=== PATIENT | female | born 1970 | race Caucasian/White ===

== ENCOUNTER → 2016-09-02 19:14 | Outpatient (CLI) | payer OTHER | END | disposition home or self-care (01) | LOC: D.MAMMO 16:15 | DX: Z12.31 Encounter for screening mammogram for malignant neoplasm of breast (principal) ==

== ENCOUNTER → 2016-09-10 08:30 | Outpatient (CLI) | payer OTHER | END | disposition home or self-care (01) | LOC: D.MRI 08:30 | DX: N83.201 Unspecified ovarian cyst, right side (principal) ==

== ENCOUNTER 2016-09-19 10:07 | Outpatient (CLI) | payer OTHER ==
--- NOTE | ~2016-09-19 | HEMODYNAMI ---
PATIENT:KANWAL QUINTANA MEDICAL RECORD: [id number] : 66 LOCATION:[facility] ADMISSION DATE: 09/19/16 Generatedon:09/19/201615:00 Patient name: KANWAL QUINTANA Patient #: [id number] SSN: : 1970 Date of study: 09/19/2016 Page: Of Hemodynamic Procedure Report Patient Data Patient Demographics Procedure consent was obtained First Name: KANWAL Gender: Female Last Name: MARIANO : 1970 Middle Initial: PING Age: 45 year(s) Patient #: [id number] Race: Additional ID: [id number] Contact details Address: [address] [place] [address] State: [place] City: [facility] Zip code: [address] Past Medical History Allergies: No known allergies Admission Admission Data Admission Date: 09/19/2016 Admission Time: 10:07 Lab Results Lab Result Date: 09/19/2016 Lab Result Time: 0:00 Biochemistry Name Units Result Min Max CK-MB ng/ml 0.8 --(*---)-- 0 3.6 Creatinine mg/dl 0.7 --(*---)-- 0.6 1.3 Creatinine l 63 --(*---)-- 21 215 Kinase Troponin l ng/ml 0.017 --(-*--)-- 0 0.06 CBC Name Units Result Min Max Hemoglobin g/dl 14.7 --(-*--)-- 13.5 17.5 Procedure Procedure Types Cath Procedure Diagnostic Procedure LHC LHC w/Coronaries Miscellaneous Procedures Moderate Sedation up to 15 minutes Procedure Description Procedure Date Procedure Date: 09/19/2016 Procedure Start Time: 14:50 Procedure End Time: 15:00 Procedure Staff Name Function Joey Hernandes MD Performing Physician Margie Monroy RN Nurse Sheila Shay RT Monitor Darya Gonzalez RT Scrub Procedure Data Cath Procedure Fluoroscopy Diagnostic fluoroscopy Total fluoroscopy Time: 1.5 time: 1.5 min min Diagnostic fluoroscopy Total fluoroscopy dose: 587 dose: 587 mGy mGy Contrast Material Contrast Material Type Amount (ml) Isovue 300 54 Entry Location Entry Primary Successful Side Size Upsize Upsize Entry Closure Cannon ccessful Closure Location (Fr) 1 (Fr) 2 (Fr) Remarks Device Remarks Radial Right 6 Fr Mechanical artery Short Compression Estimated blood loss: 5 ml Diagnostic catheters Device Type Used For End Catheter Placement Terumo 5Fr [place] 110cm LV Angiography catheter Terumo 5Fr [place] 110cm Left Coronary catheter Angiography Terumo 5Fr [place] 110cm Right Coronary catheter Angiography Procedure Complications No complications Procedure Medications Medication Administration Route Dosage Oxygen NC 2 l/min Lidocaine 2% added to field 20 Heparin Flush Bag added to field 2 bags (1000units/500ml NS) 0.9% NaCl I.V. 100 ml/hr Radial Cocktail I.A. 1 syringe (Verapomil 2mg/Nitro 400mcg/Heparin 1500units) Versed I.V. 2 mg Fentanyl I.V. 100 mcg Versed I.V. 1 mg Fentanyl I.V. 100 mcg Hemodynamics Rest HGB: 14.7 (g/dl) Heart Rate: 68 (bpm) Snapshots Pre Cath Intra NCS Post Cath Vital Signs Time Heart Resp SPO2 etCO2 [id number] NIBP Rhythm Pain Sedation Rate (ipm) (%) (mmHg) (mmHg) (mmHg) Status Level (bpm) 14:30:09 67 16 95 0 0 96/57(75) NSR 0 (11) 10(A) , No pain 14:34:19 69 17 96 0 0 97/51(81) NSR 0 (11) 10(A) , No pain 14:38:24 67 18 95 0 0 98/64(76) NSR 0 (11) 10(A) , No pain 14:42:32 62 19 97 0 0 97/48(80) NSR 0 (11) 10(A) , No pain 14:46:42 63 20 97 0 0 91/53(69) NSR 0 (11) 10(A) , No pain 14:50:50 62 19 100 0 0 99/53(74) NSR 0 (11) 10(A) , No pain 14:55:04 59 18 96 0 0 96/43(69) NSR 0 (11) 9(A) , No pain 14:59:12 62 16 95 0 0 96/56(85) NSR 0 (11) 10(A) , No pain Medications Time Medication Route Dose Verified Delivered Reason Notes Effectiveness by by 14:42:45 Oxygen NC 2 l/min Joey Hanson used for Greta Monroy RN procedure 14:42:52 Lidocaine 2% added 20ml Joey Cook for local to vial Greta Hernandes MD anesthetic field 14:43:02 Heparin Flush added 2 bags Joey Cook used for Bag to Greta Hernandes MD procedure (1000units/500ml field NS) 14:43:11 0.9% NaCl I.V. 100 Joey Hanson Per ml/hr Greta Monroy RN physician 14:49:30 Fentanyl I.V. 100 mcg Joey Hanson for sedation Greta Monroy RN 14:49:44 Versed I.V. 2 mg Joey Hanson for sedation Greta Monroy RN 14:52:33 Radial Cocktail I.A. 1 Joey Cook for (Verapomil syringe Greta Hernandes MD vasodilation 2mg/Nitro 400mcg/Heparin 1500units) 14:54:09 Versed I.V. 1 mg Joey Hanson for sedation Greta Monroy RN 14:54:13 Fentanyl I.V. 100 mcg Joey Hanson for sedation Greta Monroy RN Procedure Log Time Note 14:01:01 Darya Gonzalez RT(R) sent for patient. Start room use. 14:07:07 Time tracking: Regular hours 14:07:15 Plan of Care:Hemodynamics will remain stable., Cardiac rhythm will remain stable., Comfort level will be maintained., Respiratory function will remain adequate., Patient/ family verbilizes understanding of procedure., Procedure tolerated without complication., Recovers from procedure without complications.. 14:16:37 Patient received from ED to CCL 1 Alert and oriented. Tansferred to table in Supine position. 14:16:38 Warm blankets applied, and sari hugger turned on for patient comfort. 14:16:38 Correct patient and procedure confirmed by team. 14:16:40 Signed procedure consent form obtained from patient. 14:16:41 ECG and BP/O2 sat monitors applied to patient. 14:16:42 Full Disclosure recording started 14:29:01 Vital chart was started 14:29:05 Rhythm: sinus rhythm 14:29:54 H&P Date Dictated: 09/19/2016 ER History on chart.. 14:30:25 Pre-procedure instructions explained to patient. 14:30:25 Pre-op teaching completed and patient verbalized understanding. 14:30:27 Family in waiting room. 14:30:34 Patient NPO since Midnight. 14:30:41 Is the patient allergic to Iodine/contrast media? No. 14:30:54 Patient allergic to No known allergies 14:31:02 Is patient on blood thinner?Yes 14:31:04 ACC The patient was administered the following blood thiners within the last 24 hours: ACCPlavix 14:31:06 Patient diabetic? No. 14:31:12 Previous problem with sedation/anesthesia? No ? 14:31:12 Snore? Yes 14:31:13 Sleep apnea? No 14:31:14 Deviated septum? No 14:31:15 Opens mouth fully? Yes 14:31:16 Sticks out tongue? Yes 14:31:18 Airway obstruction? No ? 14:31:19 Dentures? No ? 14:31:23 Pre procedure: right dorsailis pedis pulse 2+ Normal; easily identifiable; not easily obliterated 14:31:24 Modified Rafa's test Ulnar < 7 seconds 14:31:26 Patient pain scale 0/10 ?. 14:31:38 IV patent on arrival in right hand with 0.9% NaCl at O. 14:33:00 Lab Result : Creatinine 0.7 mg/dl 14:33:00 Lab Result : CK-MB 0.8 ng/ml 14:33:00 Lab Result : Troponin l 0.017 ng/ml 14:33:00 Lab Result : Creatinine Kinase 63 l 14:33:00 Lab Result : Hemoglobin 14.7 g/dl 14:33:04 Lab results completed and on chart. 14:33:07 Right Radial & Right Groin area was prepped with chlora-prep and draped in sterile fashion 14:33:08 Alarms reviewed by R. N. 14:33:08 Sharps counted by scrub and verified by R.N. 14:33:23 Use device set Radial Dx 14:33:24 Acist Syringe opened to sterile field. 14:33:24 Medline Cath Pack opened to sterile field. 14:33:25 Bag Decanter opened to sterile field. 14:33:25 Terumo 6Fr Slender Glidesheath opened to sterile field. 14:33:26 St Bobo 260cm J .035 wire opened to sterile field. 14:33:26 Acist Hand Control opened to sterile field. 14:33:27 Acist Manifold opened to sterile field. 14:33:27 Tegaderm 4 x 4 opened to sterile field. 14:34:34 Baseline sample Acquired. 14:42:45 Oxygen 2 l/min NC was administered by Margie Monroy RN; used for procedure; 14:42:52 Lidocaine 2% 20ml vial added to field was administered by Joey Hernandes MD; for local anesthetic; 14:43:02 Heparin Flush Bag (1000units/500ml NS) 2 bags added to field was administered by Joey Hernandes MD; used for procedure; 14:43:11 0.9% NaCl 100 ml/hr I.V. was administered by Margie Monroy RN; Per physician; 14:48:18 IV Extension Set opened to sterile field. 14:48:32 Final Timeout: patient, procedure, and site verified with staff and physician. All members of the team are in agreement. 14:48:36 Right Radial & Right Groin site verified by team. 14:48:39 Physical assessment completed. ASA score P 2 - A patient with mild systemic disease as per Joey Hernandes MD. 14:48:42 Sedation plan: IV Moderate Sedation Versed, Fentanyl 14:49:30 Fentanyl 100 mcg I.V. was administered by Margie Monroy RN; for sedation; 14:49:44 Versed 2 mg I.V. was administered by Margie Monroy RN; for sedation; 14:50:18 Procedure started. 14:50:39 Local anesthetic to right radial artery with Lidocaine 2% by Joey Hernandes MD.INITIAL ACCESS ONLY 14:51:17 A 6 Fr Short sheath was inserted into the Right Radial artery 14:52:33 Radial Cocktail (Verapomil 2mg/Nitro 400mcg/Heparin 1500units) 1 syringe I.A. was administered by Joey Hernandes MD; for vasodilation; 14:52:34 A Terumo 5Fr [place] 110cm catheter was advanced over the wire and used for LV Angiography. 14:53:20 EF : 50 % 14:53:22 LV gram done using MÉNDEZ 14:53:24 LV hemodynamics recorded. 14:53:26 Injector settings: Ml/sec: 5, Volume: 15, 14:53:39 A Terumo 5Fr [place] 110cm catheter was advanced over the wire and used for Left Coronary Angiography. 14:54:09 Versed 1 mg I.V. was administered by Margie Monroy RN; for sedation; 14:54:13 Fentanyl 100 mcg I.V. was administered by Margie Monroy RN; for sedation; 14:55:27 A Terumo 5Fr [place] 110cm catheter was advanced over the wire and used for Right Coronary Angiography. 14:55:28 Catheter removed. 14:55:34 Terumo TR Band Standard opened to sterile field. 14:55:47 Sheath removed intact; hemostasis achieved with Mechanical Compression to the Right Radial artery. 14:55:49 Procedure ended.(Physican Out) 14:56:05 Fluoroscopy time 01.50 minutes. 14:56:10 Fluoroscopy dose: 587 mGy 14:56:10 Flurop Dose total: 587 14:56:14 Contrast amount:Isovue 300 54ml. 14:56:15 Sharps counted by scrub and verified by R.N. 14:56:19 TR band inflated with 12cc of air. 14:56:20 Insertion/operative site no bleeding no hematoma. 14:56:30 Post right radial artery:stable, clean and dry 14:56:32 Post Procedure Pulses reassessed and unchanged 14:56:39 Post-procedure physical assessment completed. ASA score P 2 - A patient with mild systemic disease as per Joey Hernandes MD. 14:56:43 Post procedure rhythm: unchanged. 14:56:58 Estimated blood loss: 5 ml 14:56:59 Post procedure instruction explained to patient.Patient verbalizes understanding. 14:57:00 Patient needs reinforcement of post procedure teaching. 14:57:21 Procedure type changed to Cath procedure, Diagnostic procedure, LHC, LHC w/Coronaries, Miscellaneous Procedures, Moderate Sedation up to 15 minutes 14:57:27 Procedure Complication : No complications 14:57:29 See physician's report for complete and final results. 14:57:58 Procedure and supply charges have been captured, reviewed, submitted and are correct. 14:59:55 Vital chart was stopped 15:00:08 Report given to Pre/Post Procedure Room. 15:00:15 Patient transfered to Pre/Post Procedure Room with Stretcher. 15:00:24 Procedure ended. 15:00:24 Full Disclosure recording stopped 15:00:29 End room use (Document Last) Device Usage Item Name Manufacture Quantity Catalog Hospital Part Current Minimal Lot# / Number Charge Number Stock Stock Serial# Code Acist Acist 1 28255 [id number] 085018 [id number] 20 Syringe Medical Systems Inc Medline Cardinal 1 [id number] 366119 49426 186908 5 Cath Pack Health Bag Microtek 1 2001S [id number] 22427 892842 5 Decanter Medical Inc. Terumo 6Fr Terumo 1 [id number] 218134 469899 768414 [address] St Bobo 1 756166 834621 565562 118866 30 260cm J .035 wire Acist Hand Acist 1 39860 960987 913663 360124 5 Control Medical Systems Inc Acist Acist 1 21361 244198 347160 545097 5 Manifold Medical Systems Inc Tegaderm 4 3M 1 1626W 308395 132933 033956 5 x 4 IV Hospira 1 46859-13 421460 66980 631735 5 Extension Set Terumo 5Fr Terumo 1 40-0588 126450 675955 381853 5 [place] 110cm catheter Terumo TR Terumo 1 [id number] 568561 679789 959107 40 Band Standard Signature Audit [place] Stage Time Signature Unsigned Intra-Procedure 09/19/2016 Sheila 3:00:39 PM Counts RT(R) Signatures Monitor : Sheila Signature : Counts RT Date : Time : [facility] [address] [place] [address]
[2016-09-19 10:57] LABS: BASOPHILS 0.1 % (0-2); EOSINOPHILS 0.7 % (0-7); HEMATOCRIT 43.1 % (36.0-48.0); HEMOGLOBIN 14.7 g/dL (12-16); IMMATURE GRANULOCYTES 0.2 % (0-5); LYMPHOCYTES 10.2 % (15-50); MCH 30.1 pg (26.0-34.0); MCHC 34.1 g/dL (31.0-37.0); MCV 88.1 fL (80.0-100.0); MEAN PLATELET VOLUME 11.5 fL (7.4-10.4); MONOCYTES 6.6 % (2-11); NEUTROPHILS 82.2 % (40-80); PLATELET COUNT 224 10x3/uL (130-400); RBC 4.89 10x6/uL (4.00-5.40); RDW 13.2 % (11.5-14.5); WBC 18.4 10x3/uL (4.8-10.8)
[2016-09-19 11:02] LABS: APPEARANCE HAZY (CLEAR); BILIRUBIN NEGATIVE (NEGATIVE); COLOR YELLOW (YELLOW); GLUCOSE NEGATIVE (NEGATIVE); KETONE NEGATIVE (NEGATIVE); LEUKOCYTE ESTERASE NEGATIVE (NEGATIVE); NITRITE NEGATIVE (NEGATIVE); PROTEIN NEGATIVE (NEGATIVE); UROBILINOGEN NORMAL (NORMAL)
[2016-09-19 11:03] LABS: HCG URINE NEGATIVE (NEGATIVE)
[2016-09-19 11:13] LABS: ALBUMIN 3.7 g/dL (3.4-5.0); ALKALINE PHOSPHATASE 78 U/L (46-116); ALT (SGPT) 34 U/L (10-68); CALC OSMOLALITY 276 mosm/kg (275-300); CALCIUM 8.8 mg/dL (8.5-10.1); CARBON DIOXIDE 27.3 mmol/L (21.0-32.0); CHLORIDE - SERUM 103 mmol/L (98-107); CREATININE - SERUM 0.7 mg/dL (0.6-1.3); GLUCOSE 101 mg/dL (74-106); POTASSIUM - SERUM 3.8 mmol/L (3.5-5.1); PROTEIN - SERUM 7.2 g/dL (6.4-8.2); SODIUM 139 mmol/L (136-145); UREA NITROGEN 11 mg/dL (7-18); eGFR NON AFRICAN AMERICAN > 90 mL/min (90-120)
[2016-09-19 12:19] LABS: TROPONIN-I 0.017 ng/mL (0.000-0.060)
[2016-09-19 13:00] LABS: CKMB 0.8 U/L (0.0-3.6); CREATINE KINASE 63 UL (21-215)
--- NOTE | 2016-09-19 15:25 | NUR ---
RESTING QUIETLY IN BED. 2L NC, NO RESP DISTRESS NOTED. VSS. NO C/O CHEST PAIN OR NAUSEA. RIGHT WRIST TR BAND IN PLACE, DRSG CDI, NO BLEEDING OR HEMATOMA NOTED. WILL CONTINUE TO MONITOR.
--- NOTE | 2016-09-19 15:55 | NUR ---
SANDWICH TRAY GIVEN. NO C/O N/V. RIGHT WRIST TR BAND IN PLACE, NO BLEEDING OR HEMATOMA NOTED.
--- NOTE | 2016-09-19 16:22 | NUR ---
2CC OF AIR REMOVED FROM TR BAND. NO BLEEDING NOTED.
--- NOTE | 2016-09-19 16:35 | NUR ---
3CC OF AIR REMOVED FROM TR BAND. NO BLEEDING NOTED.
--- NOTE | 2016-09-19 16:48 | NUR ---
3CC OF AIR REMOVED FROM TR BAND. NO BLEEDING NOTED. RIGHT HAND PIV D/C'D WITH CATHETER INTACT. BAND AID TO SITE. UP TO BEDSIDE TO GET DRESSED.
--- NOTE | 2016-09-19 16:55 | NUR ---
REMAINING AIR REMOVED FROM TR BAND. DRESSING TO SITE. DISCHARGE INSTRUCTIONS GIVEN, VERBALIZED UNDERSTANDING.
--- NOTE | 2016-09-19 17:08 | NUR ---
TAKEN OUT VIA WHEELCHAIR BY CATH SHOP LABORER. LEFT FACILITY WITH FAMILY MEMBER AND ALL PERSONAL BELONGINGS.
--- NOTE | 2016-09-24 08:06 | OP ---
PATIENT NAME: KANWAL QUINTANA MEDICAL RECORD: [id number] :66 LOCATION:[facility] ADMISSION DATE: SURGEON: JAY ETIENNE MD DATE OF OPERATION: 09/19/2016 PROCEDURES: 1. Left heart catheterization. 2. Selective coronary angiography. 3. Left ventriculogram. INDICATION: Chest pain compatible with angina, coronary artery disease and previous PTCA stent. PROCEDURE IN DETAIL: After informed consent was obtained and after detailed explanation of risks, benefits, as well as alternative therapies, the patient elected to proceed with angiogram and heart catheterization. The right radial area was prepped and draped in normal sterile fashion. Right radial artery was cannulated via modified Seldinger technique with placement of a 5-Yi sheath. All catheters exchanged through this sheath. FINDINGS: Left ventriculogram was performed in the standard 30-degree MÉNDEZ view reveals good cardiac wall motion throughout all segments. Overall ejection fraction estimated at 55% to 60%. SELECTIVE CORONARY ANGIOGRAPHY: 1. Left main showed no significant angiographic disease. 2. Left anterior descending has moderate irregularities, but no flow-limiting stenosis. 3. The left circumflex has moderate irregularities, but no flow-limiting stenosis. 4. The right coronary has previously placed stents, these are widely patent with no significant restenosis. No disease elsewise throughout the RCA or its branches. OVERALL IMPRESSION: Wide patency of the previously placed stents. No disease elsewise. Chest pain is noncardiac in etiology. TRANSINT:[id number] Voice Confirmation ID: [id number] DOCUMENT ID: [id number] JAY ETIENNE MD at 0806 CC: [id number] DICTATION DATE: 09/19/16 1459 PATIENT TRANSPORTER: 09/19/16 2105 DEP CLI 09/19/16 [place] [address]
== END 2016-09-19 17:08 | disposition home or self-care (01) ==
LOC: D.ER 10:07 → D.CATH 10:07 → EDSTATUS 12:30 → D.CATH 17:08
PROVIDERS: Family Medicine; Internal Medicine Interventional Cardiology
DX: I25.110 Atherosclerotic heart disease of native coronary artery with unstable angina pectoris (principal); Z95.5 Presence of coronary angioplasty implant and graft; I10 Essential (primary) hypertension; N83.209 Unspecified ovarian cyst, unspecified side

== ENCOUNTER → 2016-09-26 13:15 | Outpatient (CLI) | payer OTHER ==
--- NOTE | 2016-09-24 08:06 | HP ---
PATIENT: KANWAL SU MEDICAL RECORD: [id number] ACCOUNT: [id number] LOCATION:[facility] : 66 ADMISSION DATE: 09/26/16 HISTORY AND PHYSICAL EXAMINATION DATE OF SERVICE: 09/19/2016. ADMITTING DIAGNOSES: 1. Unstable angina. 2. Coronary artery disease. 3. Previous myocardial infarction, percutaneous transluminal coronary angioplasty stent in 2014. 4. Ovarian pain. 5. Ovarian cyst. 6. Hypertension. HISTORY OF PRESENT ILLNESS: Mrs. Su presents with abdominal pain originally. She has been seen by Dr. Whittaker, CAR CARDER, at [facility], told she has abdominal cyst. She has had surgery for abdominal cyst in the past, none in the last 5 years. She was told that she needs surgery for the abdominal cyst and the continued abdominal pain; however, while in the ER, she became very diaphoretic, and began having chest pain and chest pressure. This is just like that of her previous angina. She had a myocardial infarction and PTCA stent in 2014. She has not had any angina since. Her EKG is with no acute ST-T abnormalities, but nonspecific ST-T abnormalities, especially in the lateral leads. PHYSICAL EXAMINATION: GENERAL APPEARANCE: Well-nourished, well-developed, appears stated age. Level of distress, comfortable. PSYCHIATRIC: Mental status, alert, normal affect. Orientation, oriented to time, place and person. EYES: Lids and conjunctiva, noninjected. No discharge, no pallor. ENT: Lips, teeth, gums, normal dentition. Oropharynx, no cyanosis, no pallor. NECK: Carotid arteries, bilateral normal upstroke, no bruits, no thrills. JUGULAR VEINS: No jugular venous pressure or distention. CERVICAL LYMPH NODES: Nontender, nonenlarged. THYROID: Not enlarged. Nontender. No nodules. LUNGS: Respiratory effort, unlabored. CHEST: Normal curvature. No thoracic deformity. No chest wall tenderness. Percussion, resonant. Auscultation, clear. No wheezes, no rales, no rhonchi. CARDIOVASCULAR: Precordial exam, nondisplaced. No heaves or pericardial thrills. Rate and rhythm, regular. Heart sounds, normal S1, normal S2. No S3, no gallop, no rub. Systolic murmur, not heard. Diastolic murmur, not heard. EXTREMITIES: No cyanosis, no edema. Peripheral pulses, full and equal in all extremities, except as noted. No bruits appreciated. ABDOMEN: Soft, nondistended. Normal aorta. No bruit. Nontender. No masses. Liver, nontender, no hepatomegaly. Spleen, nontender, no splenomegaly. MUSCULOSKELETAL: No joint tenderness. No joint swelling. No erythema. NEUROLOGICAL: Normal gait, normal strength, normal tone. SKIN: Warm and dry. REVIEW OF SYSTEMS: The patient reports easy bruising but reports no swollen glands. The patient reports no fever, no night sweats, no significant weight gain, no significant weight loss. No significant exercise tolerance. The HISTORY AND PHYSICAL [id number] KANWAL SU patient reports no dry eyes, no irritation, no vision change. Patient reports no difficulty hearing and no ear pain. Patient reports no frequent nose bleeds or nose and sinus problems. Patient reports on arm pain on exertion. No shortness of breath while lying down. No history of heart murmur. Patient reports no cough, no wheezing or coughing up blood. Patient reports no abdominal pain, no vomiting. Normal appetite. No diarrhea and not vomiting blood. No nausea and no constipation. Patient reports no incontinence. No difficulty urinating. No hematuria. No increased frequency. Patient reports no muscle aches. No weakness, no arthralgias, no back pain. No swelling of the extremities. Patient reports no abnormal mole, no jaundice, no rashes. Reports no loss of consciousness. No weakness and no numbness. No seizures, dizziness, or headaches. The patient reports no depression, no sleep disturbance, feeling safe in a relationship and no alcohol abuse. Patient reports on fatigue. Reports no runny nose or sinus pressure. No itching, no hives, and no frequent sneezing. OVERALL IMPRESSION: Unstable anginal symptomatology in a young female with a past history of coronary artery disease. Most likely she has recurrent hemodynamically significant disease. We will proceed with coronary angiography. It is concerning that she has a past history of ovarian cyst and will need an upcoming surgery for this. Hence, we will limit her stent to a stent that requires only 30 days of Plavix due to this upcoming operation. TRANSINT:[id number] Voice Confirmation ID: [id number] DOCUMENT ID: [id number] JAY ETIENNE MD at 0806 CC: [id number] DICTATION DATE: 09/19/16 1227 GARDEN EQUIPMENT MECHANIC: 09/19/16 13[address] [id number] [place] [address]
== END | disposition home or self-care (01) ==
LOC: D.MRI 09-19 15:00
DX: M25.561 Pain in right knee (principal)

== ENCOUNTER → 2016-10-06 18:53 | Outpatient (CLI) | payer OTHER | END | disposition home or self-care (01) | LOC: D.MAMMO 13:30 | DX: R92.8 Other abnormal and inconclusive findings on diagnostic imaging of breast (principal) ==

== ENCOUNTER → 2016-10-20 07:16 | Outpatient (CLI) | payer OTHER | END | disposition home or self-care (01) | LOC: D.US 10-14 10:00 | DX: R92.8 Other abnormal and inconclusive findings on diagnostic imaging of breast (principal) ==

== ENCOUNTER 2018-08-19 12:34 | Inpatient (IN) | payer OTHER ==
[~2018-08-19] VITALS: Ht 162.6 cm; Wt 80.7 kg
--- NOTE | 2018-08-19 13:00 | NUR ---
RECEIVED TO ROOM 2207 VIA THROUGH ADMISSIONS FROM DR. CUELLO'S OFFICE. A/O X3. SKIN INTACT WITHOUT REDNESS. TEMP UP TO 102.7. WILL NOTIFY . O2 SAT AT 90% ON RA. PLACED ON O22LNC SATS UP TO 95%. WILL CONTINUE TO MONITOR. IV SITED TO RIGHT FOREARM AFTER ONE ATTEMPT IWTH 20G.
[2018-08-19] MEDS ORDERED: LOTENSIN 10 MG10 MG PO (13:05)
[2018-08-19] MEDS ORDERED: COREG 3.1253.125 MG PO (13:05)
[2018-08-19] MEDS ORDERED: PLAVIX75 MG PO (13:05)
[2018-08-19] MEDS ORDERED: BAYER CHEWABLE81 MG PO (13:06)
[2018-08-19] MEDS ORDERED: LIPITOR40 MG PO (13:06)
[2018-08-19] MEDS ORDERED: ACETAMINOPHEN500 M1 PO (13:06)
[2018-08-19 13:14] VITALS: BP 99/55; BMI 30.6
[2018-08-19 14:23] LABS: HEMATOCRIT 38.7 % (36.0-48.0); HEMOGLOBIN 13.6 g/dL (12-16); MCH 30.1 pg (26.0-34.0); MCHC 35.1 g/dL (31.0-37.0); MCV 85.6 fL (80.0-100.0); MEAN PLATELET VOLUME 10.7 fL (7.4-10.4); PLATELET COUNT 261 10x3/uL (130-400); RBC 4.52 10x6/uL (4.00-5.40); RDW 13.4 % (11.5-14.5); WBC 21.1 10x3/uL (4.8-10.8)
[2018-08-19 14:41] LABS: APPEARANCE HAZY (CLEAR); BILIRUBIN NEGATIVE (NEGATIVE); COLOR SL AMBER (YELLOW); GLUCOSE NEGATIVE (NEGATIVE); KETONE NEGATIVE (NEGATIVE); NITRITE NEGATIVE (NEGATIVE); PROTEIN 1+ mg/dL (NEGATIVE); SPECIFIC GRAVITY 1.015 (1.005-1.020)
[2018-08-19 14:42] LABS: RED CELLS - URINE 0-5 /hpf (0-5); WHITE CELLS - URINE 0-5 /hpf (0-5)
[2018-08-19 14:43] LABS: EPITHELIAL CELLS 0-5 /hpf (0-5); MUCUS >1+ /lpf (NONE SEEN)
[2018-08-19 14:44] LABS: BACTERIA MANY /hpf (NONE SEEN)
[2018-08-19 15:24] LABS: LYMPHOCYTES 12 % (15-50); MONOCYTES 3 % (2-11); NEUTROPHILS 83 % (40-80)
[2018-08-19 15:25] LABS: PLATELET ESTIMATE NORMAL
[2018-08-19 17:26] VITALS: BP 93/49
--- NOTE | 2018-08-19 18:36 | NUR ---
ATE ONLY A FEW BITES OF SUPPER. DENIES NEEDS. NO CHANGES NOTED.
[2018-08-19 20:37] VITALS: BP 95/46
--- NOTE | 2018-08-20 | NUR ---
REPORTS BEING "GUSTAVO NAUSEATED." EMESIS BAG GIVEN, TOLD PT IF IT DOES NOT SUBSIDE, WE WILL NEED TO CALL THE
--- NOTE | 2018-08-20 00:30 | NUR ---
REPORTS NAUSEA SUBSIDED.
[2018-08-20 00:55] VITALS: BP 94/58
--- NOTE | 2018-08-20 04:53 | NUR ---
I have reviewed this patient and I concur with the Shift Assessment completed by the Licensed Practical Nurse today this shift.
[2018-08-20 05:31] LABS: BASOPHILS 0.2 % (0-2); EOSINOPHILS 0.7 % (0-7); HEMATOCRIT 34.3 % (36.0-48.0); HEMOGLOBIN 11.7 g/dL (12-16); IMMATURE GRANULOCYTES 0.7 % (0-5); LYMPHOCYTES 12.2 % (15-50); MCH 29.3 pg (26.0-34.0); MCHC 34.1 g/dL (31.0-37.0); MCV 85.8 fL (80.0-100.0); MEAN PLATELET VOLUME 10.8 fL (7.4-10.4); NEUTROPHILS 78.2 % (40-80); PLATELET COUNT 223 10x3/uL (130-400); RDW 13.6 % (11.5-14.5)
[2018-08-20 05:33] VITALS: BP 90/45
[2018-08-20 05:33] LABS: WBC 13.1 10x3/uL (4.8-10.8)
[2018-08-20 05:41] LABS: CALC OSMOLALITY 273 mosm/kg (275-300); CALCIUM 7.9 mg/dL (8.5-10.1); CARBON DIOXIDE 26.3 mmol/L (21.0-32.0); CHLORIDE - SERUM 102 mmol/L (98-107); CREATININE - SERUM 0.5 mg/dL (0.6-1.3); GLUCOSE 118 mg/dL (74-106); POTASSIUM - SERUM 3.2 mmol/L (3.5-5.1); SODIUM 137 mmol/L (136-145); UREA NITROGEN 9 mg/dL (7-18); eGFR NON AFRICAN AMERICAN > 90 mL/min (90-120)
--- NOTE | 2018-08-20 08:02 | NUR ---
AWAKE AND ALERT. ORIENTED X3. BP IS LOW THIS AM. WILL MONITOR. LUNGS HAVE WHEEZES THROUGHOUT LUNG WOODSON. NON PRODUCTIVE COUGH NOTED. SKIN IS INTACT WITHOUT REDNESS. IV TO RIGHT FOREARM IS PATENT WITHOUT REDNESS AT INSERTION SITE. DENIES NEEDS.
--- NOTE | 2018-08-20 08:45 | NUR ---
BP 88/48. WILL CHECK A MANUAL.
[2018-08-20 08:54] VITALS: BP 88/48
[2018-08-20 10:39] VITALS: BMI 30.5
[2018-08-20 10:40] VITALS: Ht 162.6 cm; Wt 80.7 kg
--- NOTE | 2018-08-20 11:00 | NUR ---
BP IS STILL 96/72 MANUAL. CALLED [facility] LAMBERT APN. NEW ORDERS RECEIVED. WILL CONTINUE TO MONITOR.
--- NOTE | 2018-08-20 11:00 | NUR ---
GIVEN 30MG TORADOL SLOW IVP FOR C/O BACK PAIN LEVEL 3. WILL MONITOR.
--- NOTE | 2018-08-20 12:10 | NUR ---
BP IS 84/58 MANUAL AFTER 500CC BOLUS. NOTIFIED MD. NEW ORDERS RECEIVED.
[2018-08-20 12:11] VITALS: BP 98/47
--- NOTE | 2018-08-20 14:15 | NUR ---
BP IS 92/60. PATIENT REMAINS UNSYMPTOMATIC. NO NEW ORDERS FROM MD. WILL CONTINUE TO MONITOR.
--- NOTE | 2018-08-20 16:10 | NUR ---
RESTING QUIETLY IN BED. DENIES NEEDS. INSTRUCTED TO CALL FOR ASSISTANCE WHEN GETTING OOB.
[2018-08-20 16:58] VITALS: BP 86/47
[2018-08-20 19:54] VITALS: BP 89/51
--- NOTE | 2018-08-20 23:50 | NUR ---
AUTOMATIC BP TAKEN ON LEFT ARM 80/44. LEFT WRIST WITH SMALLER CUFF IS 108/67. MANUAL BP IS 110/70. WILL CONTINUE TO MONITOR AND TAKE WITH SMALLER CUFF.
[2018-08-21 00:13] VITALS: BP 108/67
--- NOTE | 2018-08-21 04:20 | NUR ---
I have reviewed this patient and I concur with the Shift Assessment completed by the Licensed Practical Nurse today this shift.
[2018-08-21 05:37] VITALS: BP 114/64
[2018-08-21 06:03] LABS: CALC OSMOLALITY 279 mosm/kg (275-300); CALCIUM 7.9 mg/dL (8.5-10.1); CARBON DIOXIDE 23.6 mmol/L (21.0-32.0); CHLORIDE - SERUM 107 mmol/L (98-107); CREATININE - SERUM 0.6 mg/dL (0.6-1.3); GLUCOSE 98 mg/dL (74-106); POTASSIUM - SERUM 3.6 mmol/L (3.5-5.1); SODIUM 141 mmol/L (136-145); UREA NITROGEN 11 mg/dL (7-18); eGFR NON AFRICAN AMERICAN > 90 mL/min (90-120)
[2018-08-21 06:22] LABS: BASOPHILS 0.3 % (0-2); EOSINOPHILS 1.6 % (0-7); HEMATOCRIT 32.1 % (36.0-48.0); HEMOGLOBIN 10.6 g/dL (12-16); IMMATURE GRANULOCYTES 1.3 % (0-5); LYMPHOCYTES 25.1 % (15-50); MCH 28.6 pg (26.0-34.0); MCV 86.8 fL (80.0-100.0); MEAN PLATELET VOLUME 11.2 fL (7.4-10.4); MONOCYTES 8.4 % (2-11); NEUTROPHILS 63.3 % (40-80); PLATELET COUNT 237 10x3/uL (130-400); RDW 13.9 % (11.5-14.5); WBC 6.7 10x3/uL (4.8-10.8)
--- NOTE | 2018-08-21 08:05 | NUR ---
PT RESTING IN BED. CHEST RISING AND FALLING. NO S/S OF ACUTE DISTRESS. CL IN PLACE.
[2018-08-21 09:57] VITALS: BP 100/65
[2018-08-21] MEDS ORDERED: MUCINEX600 MG PO (11:41)
[2018-08-21] MEDS ORDERED: TESSALON PERLE100 MG PO (11:41)
[2018-08-21] MEDS ORDERED: BROVANA15 MCG/2 M INH (11:41)
[2018-08-21] MEDS ORDERED: LEVAQUIN750 MG PO (11:42)
[2018-08-21 12:47] VITALS: BP 137/78
--- NOTE | 2018-08-21 13:26 | NUR ---
SPOKE WITH DR KELLY TO SEE IF HE WAS OK WITH DC. HE SAIS "OK WITH DC AND PT TO FU WITH ISAÍAS IN CLINIC.". TOLD DC FORENSIC DNA ANALYST. PT IN AGREEMENT. NO S/S OF ACUTE DISTRESS. CL IN PLACE.
--- NOTE | 2018-08-21 14:09 | NUR ---
DC INSTRUCTIONS AND EDUCATION GIVEN TO PT. DC IV WITH TIP INTACT. QUESTION ABOUT TAKING BROVAVA AND HOME INHALER. CALLED DR ZAMORA WHO STATED CONTINUE HOME INHALER ONLY. NO S/S OF ACUTE DISTRESS. ALL BELONGINGS SENT DOWN WITH PT. RAGHAVENDRA ASSISTED PT DOWN VIA WC.
== END 2018-08-21 14:06 | disposition home or self-care (01) | DRG 177 ==
LOC: D.MS 12:34
PROVIDERS: Emergency Medicine; ADMIT Family Medicine Adult Medicine; ATTEND Family Medicine Adult Medicine
DX: J15.6 Pneumonia due to other Gram-negative bacteria (principal); J96.01 Acute respiratory failure with hypoxia; J44.0 Chronic obstructive pulmonary disease with (acute) lower respiratory infection; I25.10 Atherosclerotic heart disease of native coronary artery without angina pectoris; J20.9 Acute bronchitis, unspecified; I95.9 Hypotension, unspecified

== ENCOUNTER → 2019-01-13 09:00 | Outpatient (CLI) | payer OTHER ==
[2018-08-20 10:40] VITALS: BMI 30.5
[~2019-01-13 09:00] MED LIST: ACETAMINOPHEN500 M1 PO; BAYER CHEWABLE81 MG PO; BROVANA15 MCG/2 M INH; COREG 3.1253.125 MG PO; LEVAQUIN750 MG PO; LIPITOR40 MG PO; LOTENSIN 10 MG10 MG PO; MUCINEX600 MG PO; PLAVIX75 MG PO; TESSALON PERLE100 MG PO
== END | disposition home or self-care (01) ==
LOC: D.MAMMO 12-23 16:00
PROVIDERS: ATTEND Emergency Medicine
DX: Z12.31 Encounter for screening mammogram for malignant neoplasm of breast (principal)